=== PATIENT | male | born 1945 | race Caucasian/White ===

== ENCOUNTER 2021-05-22 17:54 | Emergency (ER) | payer OTHER, MEDICARE ==
[2021-05-22] MEDS ORDERED: Bacitracin 1 PK ONE ×2 (18:12→18:34)
[2021-05-22] MEDS ORDERED: Lidocaine 1% (PF) 30 ML VIAL ONE (18:12)
== END 2021-05-22 18:40 | disposition home or self-care (01) ==
LOC: NAV ERS 17:54
DX: S61.512A Laceration without foreign body of left wrist, initial encounter (principal); E78.00 Pure hypercholesterolemia, unspecified; I10 Essential (primary) hypertension; J44.9 Chronic obstructive pulmonary disease, unspecified; F17.210 Nicotine dependence, cigarettes, uncomplicated; W26.9XXA Contact with unspecified sharp object(s), initial encounter
CPT/HCPCS: 12002; 93005; J2001